=== PATIENT | male | born 1960 | race Caucasian/White ===

== ENCOUNTER 2024-09-30 09:59 | Emergency (ER) | payer BC, SELFPAY ==
[2024-09-30] VITALS (7 sets, daily range): BP systolic 128–149; BP diastolic 81–99; PULSE 90–107; RESP 17–24; TEMP 36.6–37.2; O2SAT 86–95; BMI 31.6
--- NOTE | ~2024-09-30 | XR_ITS ---
EXAMINATION: XR CHEST 2 VIEWS HISTORY: sob COMPARISON: There are no prior studies for comparison. FINDINGS: PA and lateral views of the chest are submitted. There is a focal opacity in the left upper lobe. The right lung is clear. There is no pleural effusion, pneumothorax, or pulmonary vascular congestion. The heart is normal in size. There is mild degenerative disc disease of the spine. XR/XR chest 2V IMPRESSION: Focal opacity in the left upper lobe. While this may represent a confluence of osseous shadows, further evaluation with chest CT is recommended. Electronically signed by: Beau Sanchez MD 09/30/2024 11:01 AM CARLINE
--- NOTE | ~2024-09-30 | CT_ITS ---
CLINICAL HISTORY: dysnea CT angiography chest with contrast. 3D Postprocessing. Comparison: None Findings: The heart size is normal. RV/LV ratio is normal. The thoracic aorta is normal caliber. No acute pulmonary embolus. The visualized thyroid and mediastinum are unremarkable. No consolidation or effusion. Mild emphysema. 6 mm pleural-based nodule of the left upper lobe series 6, image 19. The upper abdomen is unremarkable. No acute fractures. IMPRESSION: No pulmonary emboli. 6 mm nodule of the left upper lobe. CT chest follow-up as indicated. Fleischner Society 2017 Guidelines for incidentally detected indeterminate nodules in persons 35 years of age or older. Single Solid Nodules: 5 mm or smaller nodules need no follow-up in low risk, and [address] follow-up is optional in high risk patients. 6-8 mm nodules have optional [address] follow-up in low risk, and 6-[address] follow-up followed by 18-[address] follow-up if no change in high risk patients. 9 mm or larger nodules should consider CT, PET/CT, or biopsy at 3 months regardless of patient risk. Multiple Solid Nodules: 5 mm or smaller nodules need no follow-up in low risk, and [address] follow-up is optional in high risk patients. 6-8 mm nodules need 3-[address] follow-up followed by an optional 18-[address] follow-up regardless of patient risk. 9 mm or larger nodules should consider 3-[address] follow-up. For low risk 18-24 month follow-up is optional, whereas for high risk it is needed. Single Ground Glass Nodules: 5 mm or smaller nodules need no followup 6 mm and larger nodules need CT at 6-12 months to confirm persistence, then CT every 2 years until 5 years Single Subsolid Nodules: 5 mm or smaller nodules need no followup 6 mm and larger nodules need CT at 3-6 months to confirm persistence. If no change and solid component /T/lt;6 mm, then CT every year until 5 years Multiple Ground Glass or Subsolid Nodules: 5 mm or smaller nodules need CT at 3-6 months. If stable, optional CT at 2 and 4 years. 6 mm or larger nodules need CT at 3-6 months. Subsequent management based on most suspicious nodule This document has been electronically signed by: Tom Hernandez MD on 09/30/2024 17:51:29
--- NOTE | 2024-09-30 10:08 | ECG_ITS ---
Test Reason : sob Blood Pressure : */* mmHG Vent. Rate : 90 BPM Atrial Rate : 90 BPM P-R Int : 142 ms QRS Dur : 90 ms QT Int : 346 ms P-R-T Axes : 56 2 59 degrees QTcB Int : 423 ms Sinus rhythm with frequent Premature ventricular complexes and PACs Otherwise normal ECG No previous ECGs available Referred By: Generic ED Physician Electronically Signed By: Virgil Hidalgo
[2024-09-30 10:39] LABS: MANUAL DIFF FLAG NO
[2024-09-30 10:43] LABS: Basophils Absolute Auto 0.1 X10*3/uL (0.0-0.2); Basophils Percent Auto 0.6 % (0-2); Eosinophils Absolute Auto 0.3 X10*3/uL (0.0-0.4); Eosinophils Percent Auto 2.5 % (0-4); Hematocrit 47.6 % (42.0-52.0); Hemoglobin 15.2 g/dl (14.0-18.0); Imm Gran Abs Auto 0.05 X10*3/uL (0.00-0.03); Imm Gran Pct Auto 0.5 % (0.0-0.4); Lymphocytes Absolute Auto 1.4 X10*3/uL (1.2-4.9); Lymphocytes Percent Auto 13.2 % (20-40); Mean Corpuscular HGB Conc 31.9 g/dl (31.0-36.0); Mean Corpuscular Hemoglobin 30.4 pg (27.0-33.0); Mean Corpuscular Volume 95.2 fL (80.0-98.0); Mean Platelet Volume 9.6 fL (9.4-12.4); Monocytes Absolute Auto 0.6 X10*3/uL (0.1-1.2); Monocytes Percent Auto 5.8 % (2-11); Neutrophils Absolute Auto 8.5 x10*3/uL (2.0-8.3); Neutrophils Percent Auto 77.4 % (45-73); Platelet Count 230 X10*3/uL (160-400); Red Cell Distribution Width 12.9 % (11.0-16.0); White Blood Count 10.9 X10*3/uL (4.8-10.8)
[2024-09-30 10:50] LABS: Prothrombin Time 11.2 SEC (10.9-12.4)
[2024-09-30 11:02] LABS: Anion Gap 9 (12-20); Blood Urea Nitrogen 8 mg/dL (9-16); Calcium 9.6 mg/dL (8.4-10.2); Carbon Dioxide 34 mmol/L (22-29); Chloride 101 mmol/L (96-108); Creatinine Clr Calc Pharmacy 119.4; Estimated Glomerular Filt Rate > 60; Glucose Random 105 mg/dL (60-115); Potassium 4.5 mmol/L (3.3-5.1); Sodium 139 mmol/L (135-145)
[2024-09-30 11:07] LABS: B Type Natriuretic Peptide 61 pg/mL (<100)
[2024-09-30 11:09] LABS: Troponin-I High Sensitivity 7.8 ng/L (<3.5-35.0)
[2024-09-30 11:26] LABS: Influenza A PCR NEGATIVE (Negative); Influenza B PCR NEGATIVE (Negative); Resp Syncy Virus RNA Qual PCR NEGATIVE (Negative); SARS COV2 PCR INHOUSE NEGATIVE (Negative)
[2024-09-30 11:43] LABS: IDNOW Serial# 58CA691E; Strep A Nucleic Acid Negative (Negative)
--- OUTSIDE RECORDS SUMMARY | 2024-09-30 15:29 | XMS_ITS | Clinical Summary ---
Author Organization [facility] Address [address] [place] [address] Care Team Providers Care Psych Arnp Name Role Phone Unavailable Primary Care Provider Unavailabl e Social History Tobacco Use Types Packs/Day Years Used Date Smoking Tobacco: Never Assessed Sex and Gender Information Value Date Recorded Sex Assigned at Not on file Gender Identity Not on file Sexual Orientation Not on file Job Start Date Occupation Industry Not on file Not on file Not on file Plan of Treatment Not on file
--- OUTSIDE RECORDS SUMMARY | 2024-09-30 15:29 | XMS_ITS | Clinical Summary ---
Author Organization [facility] [address] Address [address] [place] [address] Care Team Providers Care Children'S Nursery Assistant Name Role Phone Nehemias Sanchez MD Primary Care Provider [phone] Allergies No known active allergies Medications aspirin 81 MG EC tablet 05/13/2018 Active atorvastatin (LIPITOR) 10 MG tablet 05/11/2018 Active metoprolol tartrate (LOPRESSOR) 50 MG Immediate Release tablet 05/13/2018 Active fenofibrate (LOFIBRA) 54 MG tablet 05/20/2018 Active Family History Medical History Relation Name Comments No Known Problems Father No Known Problems Mother Relation Name Status Comments Father Mother Social History Tobacco Use Types Packs/Day Years Used Date Smoking Tobacco: Every Day Cigarettes Smokeless Tobacco: Never Alcohol Use Standard Drinks/Week Comments Yes 4 (1 standard drink = 0.6 oz pur e alcohol) daily Sex and Gender Information Value Date Recorded Sex Assigned at Not on file Legal Sex Male 7:40 AM EST Gender Identity Not on file Sexual Orientation Not on file Last Filed Vital Signs Vital Sign Reading Time Taken Comments Blood Pressure 129/68 05/31/2018 11:38 AM EDT Pulse 77 05/31/2018 11:38 AM EDT Temperature 36.4 ??C (97.5 ??F) 05/31/2018 11:38 AM E DT Respiratory Rate 20 05/31/2018 11:38 AM EDT Oxygen Saturation 95% 05/31/2018 11:38 AM EDT Inhaled Oxygen Concentration - - Weight 108 kg (238 lb) 05/31/2018 11:39 AM EDT Height 180.3 cm (5' 11 ) 05/31/2018 11:39 AM EDT Body Mass Index 33.19 05/31/2018 11:39 AM EDT Plan of Treatment Health Maintenance Due Date Last Done Comments HIV screening 1974 Hepatitis C screening 12/11/1979 Tetanus adult (Td q 10,TDAP once) 1981 Lipid disorder screening 2001 Colon cancer screening, Colonoscopy 2006 Diabetes screening 2006 Shingles vaccine (Shingrix) (1 of 2 - Shingrix (RZV) 2 Dose Standard Series) 12/11/2011 Influenza vaccine 03/24/2024 Covid-19 vaccine series (2023- season) 2024 RSV Discussion (1 - 1-dose 7 5+ series) 2036 Meningococcal Vaccine Aged Out No nicho yuly eligible based on patient's age to complete this topic Pneumococcal Vaccine Aged Out No long er eligible based on patient's age to complete this topic Insurance BS [facility] BCBS Care Teams Children'S Nursery Assistant Relationship Specialty Start Date End Date Nehemias Sanchez MD PCP - General Pediatrics 05/31/18
--- OUTSIDE RECORDS SUMMARY | 2024-09-30 15:30 | XMS_ITS | Clinical Summary ---
Author Organization [facility] Address [address] [place] [address] Care Team Providers Care Art Teacher Name Role Phone Nehemias Sanchez MD Primary Care Provider [phone] Allergies No known active allergies Medications Medication Sig Dispensed Refills Start Date End Date Status bisacodyL (DULCOLAX) 5 mg EC tablet Take 4 tablets by mouth right before your first dose of liquid prep. 03/11/2021 Active metoprolol tartrate (LOPRESSOR) 50 mg tablet TAKE 1/2 TABLET BY MOUTH TWICE A DAY 11/03/2019 Active atorvastatin (LIPITOR) 10 mg tablet TAKE 1 TABLET BY MOUTH EVERY DAY 11/03/2019 Active fenofibrate (LOFIBRA) 54 mg tablet Take 2 Tabs by mouth daily. 09/19/2019 Active aspirin 81 mg EC tablet Take 1 Tab by mouth daily. 09/19/2019 Active Active Problems Problem Noted Date Diagnosed Date Chest discomfort 10/28/2017 Overview (09/15/2024): 11/08- echo and stress test not completed, letter sent 07/11- ett never done, letter sent. 04/11- Echo and ETT never done, leter sent. Hypercholesteremia 09/23/2017 Elevated LFTs 09/23/2017 Overview (09/15/2024): 09/10- 3-4 beers/night, f/u bloodwork ordered Right knee pain 07/15/2017 Overview (09/15/2024): 07/10-Patellar tilt, neg sono, no arthiritis Enlarged prostate on rectal examination 05/05/20 16 Tobacco use disorder 02/14/2016 Overview (09/15/2024): 05/11- referred to LDCT 12/10- abnormal cxr for pna per patient, f/u cxr neg 04/10 LDCT . Pt did not respond Immunizations Name Administration Dates Next Due Influenza Quadravalent, MDCK , 0.5ml, preservative free (Flucelvax) 6mo and older 09/19/2019,05/12/2018 Influenza Quadravalent, MDCK , 0.5ml, with preservative (Flucelvax) 6mo and older 07/01/2017 Influenza trivalent, with pr eservative (Fluzone; Afluria) 6mo and older 06/05/2016 Tdap Tetanus diptheria acell ular pertussis (Boostrix; Adacel) 7yo and older 02/13/2016 Surgical History Surgery Date Site/Laterality Comments SHOULDER SURGERY PROCEDURE: HISTORICAL SHOULDER SURGERY; COMMENT: right shoulder torn labrum OTHER SURGICAL HISTORY PROCEDURE: ---- OTHER ----; COMMENT: hemorrhoid surgery COLONOSCOPY 12/24/2016 PROCEDURE: HISTORICAL COLONOSCOPY; COMMENT: 8 mm sigmoid colon polyp: Tubular adenoma. Family History Medical History Relation Name Comments Diabetes Brother Coronary artery disease Father Hyperlipidemia Father Colon cancer Uncle Relation Name Status Comments Brother Father Uncle Social History Tobacco Use Types Packs/Day Years Used Date Smoking Tobacco: Every Day Cigarettes 1.5 48.8 Started: 12/11/1975 Smokeless Tobacco: Never Alcohol Use Standard Drinks/Week Comments Yes 0 (1 standard drink = 0.6 oz pur e alcohol) Sex and Gender Information Value Date Recorded Sex Assigned at Not on file Gender Identity Not on file Sexual Orientation Not on file Obstetrics History Plan of Treatment Health Maintenance Due Date Last Done Comments Pneumococcal Vaccine: Pediatrics (0 to 5 Years) and At-Risk Patients (6 to 64 Years) (1 of 2 - PCV) 12/11/1967 Zoster Vaccines (1 of 2) 12/11/2011 Depression Screening 08/02/2022 HIV Screening 08/02/2022 Social Influencers of Health Screening 08/02/2022 Cholesterol Screening (Lipid Panel) 02/16/2024 02/15/2019 COVID-19 Vaccine (1 - season) 2024 Influenza Vaccine (#1) 2024 0, 05/12/2018, 07/01/2017, Additional history exists DTaP,Tdap,and Td Vaccines (2 - Td or Tdap) 02/12/2026 02/13/2016 Colorectal Cancer Screening: Colonoscopy 03/25/2026 03/25/2021 RSV Immunization Patients 60+ Years Old (1 - 1-dose 75+ series) 2036 Hepatitis C Screening Completed 05/12/2018 HIB Vaccines Aged Out No longer eligi ble based on patient's age to complete this topic HPV Vaccines Aged Out No longer eligi ble based on patient's age to complete this topic Hepatitis A Vaccines Aged Out No long er eligible based on patient's age to complete this topic Hepatitis B Vaccines Aged Out No long er eligible based on patient's age to complete this topic IPV Vaccines Aged Out No longer eligi ble based on patient's age to complete this topic MMR Vaccines Aged Out No longer eligi ble based on patient's age to complete this topic Meningococcal ACWY Vaccine Aged Out N o longer eligible based on patient's age to complete this topic RSV Immunization Patients Under 20 months Aged Out No longer eligible based on patient's age to complete this topic Varicella Vaccines Aged Out No longer eligible based on patient's age to complete this topic Procedures Procedure Name Priority Date/Time Associated Diagnosis Comments COLONOSCOPY Routine 03/25/2021 LIPID PANEL Routine 02/15/2019 HEPATITIS C SCREENING Routine 05/12/2018 from Last 3 Months or Most Recently Relevant to Health Maintenance Results * Colonoscopy (03/25/2021) [facility] Colonoscopy No interpretation , abstracted Anatomical Region Laterality Modality Other Historical Provider MD RAUDEL FLORES E * (ABNORMAL) Lipid panel (02/15/2019) [facility] LDL/HDL Ratio 6(A) 0 - 4 Triglycerides 566(A) 0 - 150 mg/dL Cholesterol 201(A) 0 - 200 mg/dL HDL 34(A) 40 mg/dL Blood Venous blood specimen / Unknown Historical Provider LAB BLOOD ORDERAB LES * Hepatitis C Screening (05/12/2018) Pathologist [facility] Hepatitis C Screening Abstracted Historical Provider MD RAUDEL Calzada from Last 3 Months or Most Recently Relevant to Health Maintenance Care Teams Art Teacher Relationship Specialty Start Date End Date Nehemias Sanchez MD [address] [place] [address] PCP - General Internal Medicine 10/22/15
--- NOTE | 2024-09-30 15:56 | ED_ITS ---
HPI - General Adult General Chief complaint: Upper Respiratory Symptoms Stated complaint: SOB Sent By Urgent Care Time Seen by Provider: 09/30/24 15:56 Source: patient History of Present Illness HPI narrative: 63-year-old male presents for evaluation of shortness of breath and cough. Patient states that exactly 1 month ago he was having URI symptoms and cough, and clinically diagnosed with pneumonia. Patient states he was provided with antibiotics, steroids and a inhaler which he completed the course of. Patient states he had been feeling fairly well after this but still had to use his inhaler periodically. Patient does not have a known history of lung disease. He does smoke tobacco which he has decreased significantly. He denies any weight loss or night sweats. He denies any fevers chills nausea or vomiting. He denies any dyspnea on exertion or orthopnea. He has been eating and drinking normally. Patient is otherwise feeling well. Of note, 2 days ago the patient was eating food and accidentally bit his tongue. He reports having pain to this area but no bleeding at this time. Related Data Previous Rx's ?Medication ?Instructions ?Recorded albuterol sulfate 90 mcg/actuation 2 puff inhalation QID PRN 09/30/24 aerosol inhaler shortness of breath or wheezing #6.7 grams doxycycline hyclate 100 mg tablet 100 mg PO BID 10 days #20 tabs 09/30/24 prednisone 20 mg tablet 40 mg (2 x 20 mg) PO DAILY 5 days 09/30/24 #10 tabs Allergies Allergy/AdvReac Type Severity Reaction Status Date / Time No Known Allergies Allergy Verified 09/30/24 10:07 Review of Systems 2 Constitutional: Constitutional: Denies chills, Denies fever(s) and Denies headache(s) Eyes: Eyes: Denies change in vision and Denies other (No redness.) ENT: Denies headache(s), Denies nasal congestion, Denies nasal discharge, Denies neck pain and Denies sore throat Cardiovascular: Cardiovascular: Denies chest pain, Denies palpitations and Denies orthopnea Respiratory: Respiratory: Reports cough, Denies hemoptysis and Denies pain with cough Gastrointestinal: Gastrointestinal: Denies abdominal pain, Denies melena, Denies hematochezia, Denies diarrhea, Denies nausea and Denies vomiting Genitourinary: Genitourinary: Denies difficulty urinating, Denies dysuria and Denies urinary urgency Musculoskeletal: Musculoskeletal: Denies back pain, Denies muscle weakness, Denies neck pain and Denies numbness Integumentary/Breasts: Skin/Breast: Denies rash Neurologic: Denies headache(s), Denies focal weakness and Denies numbness Psychiatric: Psychiatric: Denies depression Endocrine: Endocrine: Denies palpitations [facility] Past Medical History [facility] Narrative: Denies significant past medical history Social History Social History Smoked in Last 30 Days: Yes Use of substances other than those prescribed or required for medical reasons: No Advance Directives: No Advance Directives Information Provided: No Do you have a plan to hurt others: No Plan Physical Exam ED Vital Signs: Vital Signs - 24 hr 09/30/24 10:05 09/30/24 15:30 09/30/24 16:31 Temperature 98 F Pulse Rate 95 92 103 H Respiratory Rate 18 24 H 18 Blood Pressure 149/99 H 143/86 H Pulse Oximetry 92 86 L Oxygen Delivery Method Room Air Room Air Oxygen Flow Rate 09/30/24 16:58 09/30/24 18:26 09/30/24 20:03 Temperature 99.0 F 98.4 F Pulse Rate 107 H 90 Respiratory Rate 17 18 Blood Pressure 140/81 H 128/86 Pulse Oximetry 95 90 L 91 L Oxygen Delivery Method Nasal Cannula Room Air Room Air Oxygen Flow Rate 2 09/30/24 20:05 Temperature 98.4 F Pulse Rate 92 Respiratory Rate 18 Blood Pressure 128/86 Pulse Oximetry 91 L Oxygen Delivery Method Room Air Oxygen Flow Rate BMI result Body Mass Index 31.6 HENMT Other: Pupils are equal round and reactive to light. Nares are clear. Oropharynx is moist. There is slight erythema to the pharynx but no exudate. The right lingular aspect of the tongue demonstrates an approximately 0.5 cm avulsion without any active bleeding or erythema or discharge. Auditory canals are patent. Neck Other: No cervical lymphadenopathy Resp Other: Lung sounds are diminished throughout. There are no wheezes rales or rhonchi. No intercostal or accessory muscle use. Extrem Other: No calf tenderness or pedal edema Course Course Course Narrative: 5:15 p.m. patient reports some improvement after respiratory treatment. He denies having any chest pain or shortness of breath. No cough. CT is pending at this time. 6:[address] results returned, no evidence of PE or pneumonia. Of note, there is a 6 mm nodule in the left lung. This was discussed with the patient. He was unaware of this finding previously. I have had extensive discussion with the patient regarding follow-up. Patient will be referred to thoracic. 7:15 p.m. starting oxygen saturation is 97% on room air at rest. With ambulation, he had a decreased to 86% however quickly increased back to 97%. Patient denies any tachycardia or tachypnea or dyspnea. I have had extensive discussion with the patient about remaining in the hospital to monitor his oxygen levels versus discharge home. Patient is quite adamant about being discharged home and does not wish to stay in the hospital. Again CT does not reveal any evidence of PE or other acute process. Given that the patient may have underlying lung disease due to his tobacco use, patient will be placed on a course of steroids, as well as a course of antibiotics. Patient expresses understanding of all discharge instructions and has no further questions at this time. Feels comfortable with discharge plan home. Medications Administered Discontinued Medications Generic Name Dose Route Start Last Admin Trade Name Freq PRN Reason Stop Dose Admin Albuterol Sulfate 2.5 mg/ 0 mg 09/30/24 16:27 09/30/24 16:29 Albuterol/Ipratropium 3 ml INHALE 09/30/24 16:28 1 dose ONCE ONE Administration Doxycycline Monohydrate 100 mg 09/30/24 19:18 09/30/24 19:45 Doxycycline Monohydrate 100 Mg Capsule PO 09/30/24 19:19 100 mg ONCE ONE Administration Iohexol 65 ml 09/30/24 16:58 09/30/24 16:58 Iohexol 350 Mg/Ml 100 Ml Infus..Btl IV 09/30/24 16:59 65 ml ONCE ONE Administration Prednisone 60 mg 09/30/24 19:16 09/30/24 19:45 Prednisone 20 Mg Tablet PO 09/30/24 19:17 60 mg ONCE ONE Administration Medical Decision Making Medical Decision Making MDM Narrative: 63-year-old male with clinical diagnosis of pneumonia 1 month ago, presents to the emergency department for continued shortness of breath cough without significant sputum production. Patient has not oxygen dependent. Check labs, chest x-ray, respiratory treatment. Concern for pneumonia, chest x-ray demonstrates possible infiltrate in the left lung. Given that it is not strictly definitive on this imaging, we will CTA to further evaluate for PE, pneumonia or other lung disease. Differential Diagnosis Differential Diagnoses: The differential diagnosis associated with the presentation includes Pneumonia PE Interstitial lung disease Viral syndrome ACS Admission/Observation Consideration of admission/observation: Escalation of care including admission/observation considered Lab Data MDM Lab Attestation statement: I reviewed the patient's lab results. 09/30/24 10:32 09/30/24 10:32 Labs: Lab Results 09/30/24 Range/Units 10:32 WBC 10.9 H (4.8-10.8) X10*3/uL RBC 5.00 (4.60-5.80) X10*6/uL Hgb 15.2 (14.0-18.0) g/dl Hct 47.6 (42.0-52.0) % MCV 95.2 (80.0-98.0) fL MCH 30.4 (27.0-33.0) pg MCHC 31.9 (31.0-36.0) g/dl RDW 12.9 (11.0-16.0) % Plt Count 230 (160-400) X10*3/uL MPV 9.6 (9.4-12.4) fL Immature Gran % (Auto) 0.5 H (0.0-0.4) % Neut % (Auto) 77.4 H (45-73) % Lymph % (Auto) 13.2 L (20-40) % Taney % (Auto) 5.8 (2-11) % Eos % (Auto) 2.5 (0-4) % Baso % (Auto) 0.6 (0-2) % Lymph # (Auto) 1.4 (1.2-4.9) X10*3/uL Taney # (Auto) 0.6 (0.1-1.2) X10*3/uL Eos # (Auto) 0.3 (0.0-0.4) X10*3/uL Baso # (Auto) 0.1 (0.0-0.2) X10*3/uL Abs Immat Gran (auto) 0.05 H (0.00-0.03) X10*3/uL Absolute Neuts (auto) 8.5 H (2.0-8.3) x10*3/uL Absolute Nucleated RBC 0.000 (0.0-0.012) X10*3/uL Nucleated RBC % (auto) 0.0 (0.0-0.2) /100WBC PT 11.2 (10.9-12.4) SEC INR 1.0 (0.9-1.1) Sodium 139 (135-145) mmol/L Potassium 4.5 (3.3-5.1) mmol/L Chloride 101 (96-108) mmol/L Carbon Dioxide 34 H (22-29) mmol/L Anion Gap 9 L (12-20) BUN 8 L (9-16) mg/dL Creatinine 0.76 (0.5-1.4) mg/dL Estim Creat Clear Calc 119.4 Estimated GFR > 60 Random Glucose 105 (60-115) mg/dL Calcium 9.6 (8.4-10.2) mg/dL Magnesium 2.2 (1.6-2.6) mg/dL Troponin I High Sens 7.8 (<3.5-35.0) ng/L B-Natriuretic Peptide 61 (<100) pg/mL Influenza Type A (PCR) NEGATIVE (Negative) Influenza Type B (PCR) NEGATIVE (Negative) RSV RNA Qual (PCR) NEGATIVE (Negative) SARS-CoV-2 RNA (RT-PCR) NEGATIVE (Negative) S. pyogenes GrpA CLINT Negative (Negative) Independent Interpretation I performed an independent interpretation of an: EKG Interpretation: EKG is sinus with PVCs. Radiology Impression Discussion of test interpretation with radiology: I have reviewed the radiologist's reading. Radiologist Impression: [place] [id number] CT Scan Report Signed Patient: Yoel Castaneda MR#: [id number] : 1960 Acct:[id number] Age/Sex: 63 / M ADM Date: 09/30/24 Loc: .ED Attending Dr: Ordering Physician: Camden Arroyo Date of Service: 09/30/24 Procedure(s): CT angio chest PE protocol Accession Number(s): [id number] cc: Camden Arroyo; SHEMAR CROSS MD~ Report Number: [id number]: Total DLP = 575.00 mGy-cm CLINICAL HISTORY: dysnea CT angiography chest with contrast. 3D Postprocessing. Comparison: None Findings: The heart size is normal. RV/LV ratio is normal. The thoracic aorta is normal caliber. No acute pulmonary embolus. The visualized thyroid and mediastinum are unremarkable. No consolidation or effusion. Mild emphysema. 6 mm pleural-based nodule of the left upper lobe series 6, image 19. The upper abdomen is unremarkable. No acute fractures. IMPRESSION: No pulmonary emboli. 6 mm nodule of the left upper lobe. CT chest follow-up as indicated. Fleischner Society 2017 Guidelines for incidentally detected indeterminate nodules in persons 35 years of age or older. Single Solid Nodules: 5 mm or smaller nodules need no follow-up in low risk, and [address] follow-up is optional in high risk patients. 6-8 mm nodules have optional [address] follow-up in low risk, and 6-[address] follow-up followed by 18-[address] follow-up if no change in high risk patients. 9 mm or larger nodules should consider CT, PET/CT, or biopsy at 3 months regardless of patient risk. Multiple Solid Nodules: 5 mm or smaller nodules need no follow-up in low risk, and [address] follow-up is optional in high risk patients. 6-8 mm nodules need 3-[address] follow-up followed by an optional 18-[address] follow-up regardless of patient risk. 9 mm or larger nodules should consider 3-[address] follow-up. For low risk 18-24 month follow-up is optional, whereas for high risk it is needed. Single Ground Glass Nodules: 5 mm or smaller nodules need no followup 6 mm and larger nodules need CT at 6-12 months to confirm persistence, then CT every 2 years until 5 years Single Subsolid Nodules: 5 mm or smaller nodules need no followup 6 mm and larger nodules need CT at 3-6 months to confirm persistence. If no change and solid component /T/lt;6 mm, then CT every year until 5 years Multiple Ground Glass or Subsolid Nodules: 5 mm or smaller nodules need CT at 3-6 months. If stable, optional CT at 2 and 4 years. 6 mm or larger nodules need CT at 3-6 months. Subsequent management based on most suspicious nodule This document has been electronically signed by: Tom Hernandez MD on 09/30/2024 17:51:29 Dictated By: Tom Hernandez MD Signed By: <Electronically signed by Tom Hernandez MD in OV> 09/30/241751 DD/ 50 TD/TT: 09/30/241750 [facility] Department Supervisor: [place] [id number] XRay Report Signed Patient: Yoel Castaneda MR#: [id number] : 1960 Acct:[id number] Age/Sex: 63 / M ADM Date: 09/30/24 Loc: .ED Attending Dr: Ordering Physician: Generic ED Physician Date of Service: 09/30/24 Procedure(s): XR chest 2V Accession Number(s): [id number] cc: Generic ED Physician; SHEMAR CROSS MD~ EXAMINATION: XR CHEST 2 VIEWS HISTORY: sob COMPARISON: There are no prior studies for comparison. FINDINGS: PA and lateral views of the chest are submitted. There is a focal opacity in the left upper lobe. The right lung is clear. There is no pleural effusion, pneumothorax, or pulmonary vascular congestion. The heart is normal in size. There is mild degenerative disc disease of the spine. XR/XR chest 2V IMPRESSION: Focal opacity in the left upper lobe. While this may represent a confluence of osseous shadows, further evaluation with chest CT is recommended. Electronically signed by: Beau Sanchez MD 09/30/2024 11:01 AM EST Dictated By: Beau Sanchez MD Signed By: <Electronically signed by Beau Sanchez MD in OV> 09/30/24 1101 DD/ 1040 TD/TT: 09/30/24 1044 [facility]ack Department Supervisor: Prescription Management I considered prescription management with: Antibiotic Discharge Plan Discharge Clinical Impression: Bronchitis, Hypoxia Patient Disposition: Home, Self-Care Instructions: Acute Bronchitis (ED), Hypoxia (ED) Additional Instructions: Continue albuterol as directed Doxycycline as directed. Finish all antibiotics. Prednisone as directed. This is a steroid. Discontinue tobacco use. Your CAT scan shows a 6 mm nodule in the left lung. This will need to be followed up by a specialist, Dr. Toussaint. Call 1st thing Thursday morning to schedule a follow up appointment in the next week. Follow-up with your primary care provider. Call this week to schedule a follow- up appointment. Return to the emergency department if you have any worsening of symptoms, or any concerns. Get well soon! Prescriptions: New prednisone 20 mg tablet 40 mg PO DAILY 5 Days Qty: 10 0RF doxycycline hyclate 100 mg tablet 100 mg PO BID 10 Days Qty: 20 0RF albuterol sulfate 90 mcg/actuation HFA aerosol inhaler 2 puff inhalation QID PRN (Reason: shortness of breath or wheezing) Qty: 6.7 0RF Referrals: Noel Toussaint MD [Physician] - 1 week (6 mm Left lung nodule) Stand Alone Forms: Work/School Release Interventions: ED Discharge Assessment Last Done: 09/30/24 20:05 Discharge Date/Time: 09/30/24 20:06 Print Language: Maltese
[2024-09-30] MEDS: Albuterol Sulfate 2.5 MG, Albuterol/Iprat 2.5/0.5MG 3 ML 3 ML INHALE (16:29)
[2024-09-30 16:44] LABS: Magnesium 2.2 mg/dL (1.6-2.6)
[2024-09-30] MEDS: iohexoL 350 MG/ML 100 ML INFUS..BTL 65 ML IV (16:58)
--- NOTE | 2024-09-30 18:05 | ECG_ITS ---
Test Reason : ARRYTHMIA,REPEAT Blood Pressure : */* mmHG Vent. Rate : 102 BPM Atrial Rate : 102 BPM P-R Int : 162 ms QRS Dur : 88 ms QT Int : 366 ms P-R-T Axes : 56 35 67 degrees QTcB Int : 477 ms Sinus tachycardia with Premature supraventricular complexes Otherwise normal ECG When compared with ECG of 30-Sep-2024 10:25, Premature ventricular complexes are no longer Present Premature supraventricular complexes are now Present T wave inversion no longer evident in Anterior leads QT has lengthened Referred By: Camden Arroyo Electronically Signed By: Virgil Hidalgo
[2024-09-30] MEDS: predniSONE 20 MG TABLET 60 MG PO (19:45)
[2024-09-30] MEDS: Doxycycline Monohydrate 100 MG CAPSULE PO (19:45)
--- NOTE | 2024-09-30 20:04 | PC.NURSE ---
pt ambulatory at discharge iv removed spo2 91% RA at discharge made aware per pt okay for discharge pt provided with discharge packet and work note pt verbalized understanding of discharge plan
== END 2024-09-30 20:06 | disposition home or self-care (01) ==
PROVIDERS: Physician Assistant; Emergency Provider Emergency Medicine; PCP Pediatrics
DX: J40 Bronchitis, not specified as acute or chronic (principal); R06.02 Shortness of breath; R09.02 Hypoxemia; R00.0 Tachycardia, unspecified; I49.9 Cardiac arrhythmia, unspecified; Z03.818 Encounter for observation for suspected exposure to other biological agents ruled out; Z79.899 Other long term (current) drug therapy
CPT/HCPCS: 0241U; 36415; 71046; 71275; 80048; 83735; 83880; 84484; 85025; 85610; 87651; 93005; 94640; 99284; 99285; Q9967

== ENCOUNTER → 2024-09-30 10:08 | Outpatient (BNV) | payer SELFPAY | PROVIDERS: PCP Pediatrics; Visit Provider Radiology Diagnostic Radiology | DX: R91.1 Solitary pulmonary nodule (principal); R06.02 Shortness of breath | CPT/HCPCS: 71046; 71275 ==

== ENCOUNTER → 2024-09-30 10:08 | Outpatient (BNV) | payer BC, SELFPAY | PROVIDERS: Emergency Provider Emergency Medicine; PCP Pediatrics; Visit Provider Internal Medicine Cardiovascular Disease | DX: R06.02 Shortness of breath (principal); I49.1 Atrial premature depolarization; R00.0 Tachycardia, unspecified; I49.3 Ventricular premature depolarization | CPT/HCPCS: 93010 ==

== ENCOUNTER 2024-10-18 10:52 | Outpatient (AMB) | payer BC, SELFPAY ==
--- NOTE | 2024-10-18 11:04 | MHC.OFFVIS ---
Intake Visit Reasons: 6mm (L) lung nodule Intake Note: Patient referred after ER visit for Lt lung nodule. Patient c/o: SOB. ? improvemednt with Prednisone, Albuterol inhaler, Doxycycline. Chest CT and X-ray: 09-30-2024 Allergies No Known Allergies Allergy (Verified 09/30/24 10:07) HPI Comments Details: Patient was recently seen emergency department for evaluation of respiratory issues/pneumonia. He underwent a CT scan of the chest demonstrating an incidental leave found left upper lobe lung lesion less than 6 mm in size. Patient presents here for follow-up regarding this. Patient has a longstanding history of at least 1 pack per day smoker since age 15. Since this incident, he was discontinued smoking in his on nicotine supplements. In the meantime, he denies aside from his recent respiratory issues or any chronic cough, hemoptysis, chest pain or wheezing. His weight, energy, and appetite are stable. He has noticed that with strenuous activities, he does become short of breath. Chart was reviewed and patient evaluated Physical Exam HEENT Other: No obvious cervical periclavicular or axillary adenopathy bilaterally. Chest Other: Chest breath sounds bilaterally, consistent with COPD. GI Other: Abdomen corpulent, soft, benign Assessment & Plan Assessment & Plan (1) Lesion of left lung: Code(s): R91.1 - Solitary pulmonary nodule Category: Surgical Plan: Current plan is to have the patient undergo lung cancer screening CT scans annually. In the meantime, he should contact his medical doctor not only regarding his recent smoking but for general checkup. He has not seen his physician in many years. All questions answered. Patient was see me in 1 year's time following surveillance CT scan or p.r.n.. All questions answered. Orders: Orders CT lung screening 11 Months R91.1 - Solitary pulmonary nodule Coding Level of Care Code New Pt Level 4 (58571) Diagnoses Lesion of left lung R91.1
--- OUTSIDE RECORDS SUMMARY | 2024-10-18 13:10 | XMS_ITS | Clinical Summary ---
[facility] Address [address] [place] [address] Care Team Providers Care Prior Authorization Technician Name Role Phone Unavailable Primary Care Provider [...]
--- OUTSIDE RECORDS SUMMARY | 2024-10-18 13:10 | XMS_ITS | Encounter Summary ---
[facility] Organization [facility] Address [id number] [place] [id number] Care Team Providers Care Partition Setter Name Role Phone Nehemias Sanchez MD Primary Care Provider [phone] Reason for Referral * Consultation (Routine) - Pending Review Specialty Diagnoses / Procedures Referred By Contac t Referred To Contact General Surgery Diagnoses Lung nodule Nehemias Sanchez MD [address], [place] Phone: tel: fax: Referral ID Status Reason Start Date Expiration Date Visits Requested Visits Authorized [id number] Pending Review Specialty Services Required 10/10/2024 10/10/2025 1 1 Scheduling Instructions [facility] General Surgery Dept, pt has appt on Oct 18 @ 11 regarding a 6mm Pulmonary Nodule that was discovered in pt's recent ED visit, they are looking for a referral to be placed for the appt. Reason for Visit * Reason Onset Date Comments Referral 10/07/2024 Encounter Details Date Type Department Care Team ([facility] Contact Info) Description 10/07/2024 Telephone Adult Medicine - [address] [phone] Nehemias Sanchez MD [address] [place] [address] Referral Social History Tobacco Use Types Packs/Day Years Used Date Smoking Tobacco: Every Day Cigarettes 1.5 48.9 Started: 12/11/1975 Smokeless Tobacco: Never Alcohol Use Standard Drinks/Week Comments Yes 0 (1 standard drink = 0.6 oz pur e alcohol) Sex and Gender Information Value Date Recorded Sex Assigned at Not on file Legal Sex Male 1:01 AM EST Gender Identity Not on file Sexual Orientation Not on file documented as of this encounter Progress Notes * Yousuf Washington - 10/07/2024 1:42 PM EST Amaya from [facility] General Surgery Dept, pt has appt on Oct 18 @ 11 regarding a 6mm Pulmonary Nodule that was discovered in pt's recent ED visit, they are looking for a referral to be placed for the appt. F: [phone] documented in this encounter Plan of Treatment Scheduled Referrals Name Type Priority Associated Diagnoses Order Schedule Ambulatory referral to General Surgery Outpatient Referral Routine Lung nodule 1 Occurrences starting 10/10/2024 until 10/10/2025 documented as of this encounter Visit Diagnoses Diagnosis Lung nodule- Primary Other diseases of lung, not elsewhere classified documented in this encounter Care Teams Partition Setter Relationship Specialty Start Date End Date Nehemias Sanchez MD [address] [place] [id number] PCP - General Internal Medicine 10/22/15 documented as of this encounter
--- OUTSIDE RECORDS SUMMARY | 2024-10-18 13:10 | XMS_ITS | Clinical Summary ---
Author Organization [facility] [address] Address [address] [place] [address] Care Team Providers Care Engineering Lab Technician Name Role Phone Nehemias Sanchez MD Primary Care Provider [phone] Allergies No known active allergies Medications aspirin [...] 12/11/2011 Influenza vaccine 03/24/2024 Covid-19 vaccine series ( - 2023- season) 2024 RSV Discussion (1 - 1-dose 7 5+ series) 2036 Meningococcal Vaccine Aged Out No nicho yuly eligible based on patient's age to complete this topic Pneumococcal Vaccine (2 - 49 years) Aged Out No longer eligible based on patient's age to complete this topic Insurance BCBS BS BCBS Care Teams Engineering Lab Technician Relationship Specialty Start Date End Date Nehemias Sanchez MD PCP - General Pediatrics 05/31/18
--- OUTSIDE RECORDS SUMMARY | 2024-10-18 13:10 | XMS_ITS | Clinical Summary ---
Author Organization [facility] Address [address] [place] [address] Phone Care Team Providers Care Tmd Teacher Name Role Phone Nehemias Sanchez MD Primary Care Provider [phone] Allergies No known active allergies Medications bisacodyL (DULCOLAX) 5 mg EC tablet Take [...] 04/10 LDCT . Pt did not respond Encounters Date Type Department Care Team Description 10/07/2024 Telephone Adult Medicine - [address] [phone] Nehemias Sanchez MD Referral from Last 3 Months Immunizations Name Administration Dates Next Due Influenza [...] Due Date Last Done Comments Pneumococcal Vaccine: 50+ Years (1 of 2 - PCV) 1980 Pneumococcal Vaccine: Pediatrics (0 to 5 Years) and At-Risk Patients (6 to 64 Years) (1 of 2 - PCV) 1980 Zoster Vaccines (1 of 2) 12/11/2011 Depression Screening 08/02/2022 HIV Screening 08/02/2022 Social Influencers of Health Screening 08/02/2022 Cholesterol Screening (Lipid Panel) 02/16/2024 02/15/2019 COVID-19 Vaccine ( - season) 2024 Influenza Vaccine (#1) 2024 [...] patient's age to complete this topic Meningococcal B Vacine Aged Out No lo nger eligible based on patient's age to complete [...] to Health Maintenance Results * Colonoscopy (03/25/2021) Colonoscopy No interpretation , abstracted Anatomical Region Laterality Modality Other Historical Provider MD HEALTH MAINTENANCE Final Result * (ABNORMAL) Lipid panel (02/15/2019) LDL/HDL Ratio 6(A) 0 - 4 Triglycerides 566(A) 0 - 150 mg/dL Cholesterol 201(A) 0 - 200 mg/dL HDL 34(A) >=40 mg/dL Blood Venous blood specimen / Unknown Historical Provider LAB BLOOD ORDERABLES Juliette l Result * Hepatitis C Screening (05/12/2018) Hepatitis C Screening Abstracted us Historical Provider HEALTH MAINTENANCE Final Result from Last 3 Months or Most Recently Relevant to Health Maintenance Care Teams Tmd Teacher Relationship Specialty Start Date End Date Nehemias Sanchez MD [address] [place] [id number] PCP - General Internal Medicine 10/22/15
== END 2024-10-18 11:12 | disposition home or self-care (01) ==
PROVIDERS: PCP Pediatrics; Visit Provider Surgery
DX: R91.1 Solitary pulmonary nodule (principal)
CPT/HCPCS: 99204

== ENCOUNTER → 2024-10-18 10:52 | Outpatient (BNVA) | payer BC, SELFPAY | PROVIDERS: PCP Pediatrics; Visit Provider Surgery ==